=== PATIENT | female | born 1980 | race Caucasian/White ===

== ENCOUNTER 2022-01-24 15:58 | Outpatient (CLI) | payer BC | END 2022-01-24 15:59 | disposition home or self-care (01) | LOC: CTENTCT 15:58 | PROVIDERS: ATTEND Otolaryngology Plastic Surgery within the Head & Neck | DX: J32.9 Chronic sinusitis, unspecified (principal) | CPT/HCPCS: 70486 ==

== ENCOUNTER 2024-08-01 08:41 | Outpatient (CLI) | payer BC | END 2024-08-01 08:42 | disposition home or self-care (01) | LOC: BICMAMMO 08:41 | PROVIDERS: ATTEND Advanced Practice Midwife | DX: N64.89 Other specified disorders of breast (principal) | CPT/HCPCS: G0279 ==